=== PATIENT | female | born 1995 | race Caucasian/White ===

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

== ENCOUNTER 2022-01-24 14:16 | Emergency (ER) | payer OTHER ==
[2022-01-24 14:39] VITALS: BP 122/72; PULSE 101; RESP 18; TEMP 97.6; BMI 29.2
[2022-01-24] MEDS ORDERED: ACETAMINOPHEN 325 MG TABLET (FP) PO ONE (15:45)
[2022-01-24] MEDS ORDERED: ACETAMINOPHEN 325 MG TABLET (FP) ONE (18:25)
== END 2022-01-24 20:38 | disposition home or self-care (01) ==
LOC: JER 14:16
DX: M54.6 Pain in thoracic spine (principal); M54.50 Low back pain, unspecified; V43.52XA Car driver injured in collision with other type car in traffic accident, initial encounter
CPT/HCPCS: 70450-TC; 71250-TC; 72125-TC; 72128-TC; 99285-25

== ENCOUNTER 2022-11-14 02:50 | Inpatient (IN) | payer OTHER ==
[2022-11-14] MEDS ORDERED: ELECTROLYTE-148 SOLN 1,000 ML IV SCH (04:00)
[2022-11-14 04:30] VITALS: BMI 35.6
[2022-11-14 05:24] LABS: POTASSIUM 4.2 mmol/L (3.5-5.1)
[2022-11-14 05:26] LABS: CALCIUM 8.4 mg/dL (8.5-10.1)
[2022-11-14 05:27] LABS: BLOOD UREA NITROGEN 9.3 mg/dL (7-18)
[2022-11-14 05:30] LABS: CREATININE 0.6 mg/dL (0.55-1.3)
[2022-11-14 05:42] LABS: OPIATES, URI NEGATIVE (NEGATIVE)
[2022-11-14 05:45] LABS: COCAINE, UR NEGATIVE (NEGATIVE); METHADONE, UR NEGATIVE (NEGATIVE); PHENCYCLIDINE,URINE NEGATIVE (NEGATIVE); URINE AMPHETAMINES NEGATIVE (NEGATIVE); URINE BARBITURATES NEGATIVE (NEGATIVE); URINE BENZODIAZEPINES NEGATIVE (NEGATIVE)
[2022-11-14 06:14] LABS: BASO % 0.4 % (0-2.0); EOS % 1.2 % (0-4.5); HEMATOCRIT 28.8 % (32.4-45.2); HEMOGLOBIN 8.7 GM/dL (10.7-15.3); MCHC 30.4 g/dl (32.0-36.0); MEAN PLT VOLUME 11.1 fl (7.5-11.1); MONO % 6.9 % (3.8-10.2); NEUT % 68.5 % (42.8-82.8); PLATELET COUNT 207 10^3/uL (134-434); RBC 4.43 M/mm3 (3.60-5.2); RDW 19.2 % (11.6-15.6); WHITE BLOOD COUNT 8.5 K/mm3 (4.0-10.0)
[2022-11-14 06:17] LABS: MCH 19.7 pg (25.7-33.7)
[2022-11-14 06:23] LABS: HIV INTERPRETATION NEGATIVE (NEGATIVE)
[2022-11-14] MEDS ORDERED: OXYTOCIN 30 UNITS in 0.9% NS 30 UNIT/500 ML INFUS.BAG IVPB SCH (07:15)
[2022-11-14] MEDS ORDERED: OXYTOCIN 30 UNITS in 0.9% NS 30 UNIT/500 ML INFUS.BAG IVPB ONE (07:29)
[2022-11-14] MEDS ORDERED: BUTORPHANOL TARTRATE 1 MG/ML VIAL IVPUSH PRN (08:31)
[2022-11-14] MEDS ORDERED: PROMETHAZINE HCL 25 MG/1 ML VIAL IVPB ONE ×2 (08:31→16:09)
[2022-11-14 08:44] LABS: ANISOCYTOSIS 3+; MACROCYTOSIS 0
[2022-11-14] MEDS ORDERED: PROMETHAZINE HCL 25 MG/1 ML VIAL ONE ×2 (11:18→16:18)
[2022-11-14] MEDS ORDERED: BUTORPHANOL TARTRATE 1 MG/ML VIAL ONE ×2 (11:18→16:18)
[2022-11-14 13:04] LABS: POC NITRAZINE POS
[2022-11-14] MEDS ORDERED: BUTORPHANOL TARTRATE 1 MG/ML VIAL IVPUSH ONE (16:09)
[2022-11-14] MEDS ORDERED: FENTANYL/BUPIVACAINE/NS/PF - PCEA - 50 ML DISP.SYRIN EP ONE (17:31)
[2022-11-14] MEDS ORDERED: NALOXONE HCL 0.4 MG/ML VIAL IVPUSH PRN (18:03)
[2022-11-14] MEDS ORDERED: FENTANYL/BUPIVACAINE/NS/PF - PCEA - 50 ML DISP.SYRIN EP SCH (18:15)
[2022-11-14] MEDS ORDERED: CITRIC ACID/SODIUM CITRATE 30 ML UNIT-DOSE CUP PO ONE (18:49)
[2022-11-14] MEDS ORDERED: morphine SULFATE/PF 1 MG/2 ML (2cc Syringe - QUVA) ONE (19:07)
[2022-11-14] MEDS ORDERED: OXYTOCIN 10 UNITS/ML VIAL ONE (19:07)
[2022-11-14] MEDS ORDERED: ONDANSETRON 4 MG/2 ML VIAL ONE (19:07)
[2022-11-14] MEDS ORDERED: KETOROLAC TROMETHAMINE 30 MG/1 ML VIAL ONE (19:07)
[2022-11-14] MEDS ORDERED: PHENYLEPHRINE HCL 10 MG/1 ML SINGLE DOSE VIAL ONE (19:07)
[2022-11-14] MEDS ORDERED: ceFAZolin SODIUM 1 GM VIAL ONE (19:10)
[2022-11-14] MEDS ORDERED: MIDAZOLAM HCL 2 MG/2 ML SINGLE DOSE VIAL ONE (19:44)
[2022-11-14] MEDS ORDERED: ACETAMINOPHEN 325 MG TABLET (FP) PO PRN (20:10)
[2022-11-14] MEDS ORDERED: METHYLERGONOVINE MALEATE 0.2 MG/1 ML AMP IM PRN (20:10)
[2022-11-14 20:14] LABS: CORD BASE EXCESS -5.5 mmol/L (0-2); CORD PCO2 34.4 mmHg (30-78); CORD pH 7.36 (7.14-7.44)
[2022-11-14 20:15] LABS: CORD BASE EXCESS -7.3 mmol/L (0-2); CORD HCO3 20.1 mmHg (20-29); CORD PCO2 46.9 mmHg (30-78); CORD pH 7.249 (7.14-7.44)
[2022-11-14] MEDS: OXYTOCIN 20 UNITS in 0.9% NS 20 UNIT/1,000 ML INFUS.BAG IV SCH (20:20)
[2022-11-14] MEDS ORDERED: ONDANSETRON 4 MG/2 ML VIAL IVPUSH PRN (20:57)
[2022-11-14] MEDS ORDERED: IBUPROFEN 800 MG/8 ML IJ IVPB ONE (21:51)
[2022-11-14] MEDS: IBUPROFEN 800 MG/8 ML IJ IVPB PRN (21:58)
[2022-11-15] MEDS ORDERED: ceFAZolin 2 GRAM PREMIX BAG IVPB SCH (02:00)
[2022-11-15] MEDS: CEFAZOLIN SODIUM 2 GM in DEXTROSE 5%-WATER 100 ML IVPB SCH ×2 (02:07→13:00)
[2022-11-15] MEDS: SIMETHICONE 80 MG TAB.CHEW (FP) PO PRN (02:15)
[2022-11-15] MEDS: OXYTOCIN 20 UNITS in 0.9% NS 20 UNIT/1,000 ML INFUS.BAG IV SCH ×2 (05:05→22:48)
[2022-11-15 07:33] LABS: BASO % 0.2 % (0-2.0); EOS % 0.3 % (0-4.5); HEMATOCRIT 21.3 % (32.4-45.2); MCHC 30.1 g/dl (32.0-36.0); MEAN CELL VOLUME 65.1 fl (80-96); MEAN PLT VOLUME 10.2 fl (7.5-11.1); MONO % 5.9 % (3.8-10.2); NEUT % 78.6 % (42.8-82.8); PLATELET COUNT 168 10^3/uL (134-434); RBC 3.28 M/mm3 (3.60-5.2); RDW 19.5 % (11.6-15.6); WHITE BLOOD COUNT 11.7 K/mm3 (4.0-10.0)
[2022-11-15 07:39] LABS: MCH 19.6 pg (25.7-33.7)
[2022-11-15 07:40] LABS: HEMOGLOBIN 6.4 GM/dL (10.7-15.3)
[2022-11-15] MEDS ORDERED: oxyCODONE HCL 5 MG TABLET PO PRN ×2 (08:10)
[2022-11-15] MEDS ORDERED: ENOXAPARIN NA (PORCINE) 40 MG/0.4 ML DISP.SYRIN SQ SCH (10:00)
[2022-11-15] MEDS: IBUPROFEN 800 MG/8 ML IJ IVPB PRN ×2 (13:38→21:42)
[2022-11-15] MEDS ORDERED: BISACODYL 10 MG SUPP.RECT RC PRN (20:10)
[2022-11-15] MEDS ORDERED: CEFAZOLIN SODIUM 2 GM in DEXTROSE 5%-WATER 100 ML IVPB SCH (21:00)
[2022-11-16 08:26] LABS: HEMATOCRIT 23.9 % (32.4-45.2); HEMOGLOBIN 7.7 GM/dL (10.7-15.3); MCH 21.5 pg (25.7-33.7); MCHC 32.3 g/dl (32.0-36.0); MEAN CELL VOLUME 66.6 fl (80-96); MEAN PLT VOLUME 9.6 fl (7.5-11.1); PLATELET COUNT 157 10^3/uL (134-434); RBC 3.59 M/mm3 (3.60-5.2); RDW 20.6 % (11.6-15.6); WHITE BLOOD COUNT 8.7 K/mm3 (4.0-10.0)
[2022-11-16] MEDS: IBUPROFEN 600 MG TABLET (FP) PO PRN ×3 (09:52→21:34)
[2022-11-16] MEDS: FERROUS SO4 325 MG TABLET (FP) PO SCH ×2 (09:53→21:34)
[2022-11-16] MEDS: SIMETHICONE 80 MG TAB.CHEW (FP) PO PRN (18:00)
[2022-11-16 22:01] VITALS: PULSE 74
[2022-11-17 08:19] LABS: BASO % 0.2 % (0-2.0); EOS % 2.7 % (0-4.5); HEMATOCRIT 24.1 % (32.4-45.2); HEMOGLOBIN 7.7 GM/dL (10.7-15.3); LYMPH % 27.8 % (8-40); MCH 21.7 pg (25.7-33.7); MCHC 31.9 g/dl (32.0-36.0); MEAN PLT VOLUME 10.7 fl (7.5-11.1); NEUT % 62.3 % (42.8-82.8); PLATELET COUNT 152 10^3/uL (134-434); RBC 3.54 M/mm3 (3.60-5.2); WHITE BLOOD COUNT 7.9 K/mm3 (4.0-10.0)
[2022-11-17] MEDS: FERROUS SO4 325 MG TABLET (FP) PO SCH (09:27)
[2022-11-17] MEDS: IBUPROFEN 600 MG TABLET (FP) PO PRN (09:27)
[2022-11-17 10:09] VITALS: BP 98/63; RESP 16; TEMP 98.2
== END 2022-11-17 12:30 | disposition home or self-care (01) | DRG 540 ==
LOC: JLDR 02:50 → J3W 22:05
PROVIDERS: ADMIT Obstetrics & Gynecology; ATTEND Obstetrics & Gynecology
PROC: 10D00Z1 Extraction of Products of Conception, Low, Open Approach (ICD-10-PCS; principal; 2022-11-14)
PROC: 30233N1 Transfusion of Nonautologous Red Blood Cells into Peripheral Vein, Percutaneous Approach (ICD-10-PCS; 2022-11-14)
DX: O42.02 Full-term premature rupture of membranes, onset of labor within 24 hours of rupture (principal); O99.02 Anemia complicating childbirth; D64.9 Anemia, unspecified; O62.0 Primary inadequate contractions; O76 Abnormality in fetal heart rate and rhythm complicating labor and delivery; Z3A.39 39 weeks gestation of pregnancy; Z37.0 Single live birth
CPT/HCPCS: 36415; 36430; 36600; 80048; 80307; 82803; 83986-QW; 85025; 85027; 85730; 86780; 86850; 86900; 86901; 86922; 87389; 88307-TC; 94010; P9058